=== PATIENT | female | born 1995 | race Caucasian/White ===

== ENCOUNTER 2017-10-10 14:27 | Emergency (ER) | payer OTHER ==
[~2017-10-10] VITALS: Ht 170.2 cm; Wt 90.7 kg
[2017-10-10 14:30] VITALS: BP 137/66
--- NOTE | 2017-10-10 15:14 | NUR ---
PT AMBULATES TO BED 1
--- NOTE | 2017-10-10 15:19 | NUR ---
C/O PAIN TO RIGHT 1ST DIGIT 2 DAYS----WHILE ATTEMPTING TO REMOVE DAUGHTERS CARSEAT, ACCIDENTLY PULLED NAIL ALMOST OUT NO SANGUINEOUS DRAINAGE NOTED HX---BIPOLAR RX---SEROQUEL 100MG QD
[2017-10-10] MEDS ORDERED: KETOROLAC 60 MG/2 ML VIAL IM ONE (16:05)
[2017-10-10] MEDS ORDERED: NEOMYCIN/POLYMYXIN/BACITRACIN 0.9 GM/1 PKT TP ONE ×2 (16:05)
[2017-10-10] MEDS ORDERED: LIDOCAINE 1% 500 MG/50 ML VIAL INJ ONE (16:05)
[2017-10-10] MEDS ORDERED: MORPHINE SULFATE 2 MG/ML SYR IM ONE (16:05)
[2017-10-10 17:37] VITALS: BP 137/66
== END 2017-10-10 17:37 | disposition home or self-care (01) ==
LOC: MED 14:27
DX: S61.101A Unspecified open wound of right thumb with damage to nail, initial encounter (principal); X58.XXXA Exposure to other specified factors, initial encounter; Y93.89 Activity, other specified; Y92.89 Other specified places as the place of occurrence of the external cause; Y99.8 Other external cause status
CPT/HCPCS: 11730; 96372; 99284; J1885; J2001; J2270